=== PATIENT | male | born 1965 ===

== ENCOUNTER → 2024-05-24 | Outpatient (CLI) | payer OTHER ==
[2024-05-26 10:13] LABS: Stool Occult Bld Immuno 1 Positive (NEGATIVE)
[2024-05-26 10:14] LABS: Stool Occult Bld Immuno 2 Positive (NEGATIVE)
== END ==
LOC: LAB SHORT 17:16 → LAB 17:16
PROVIDERS: Physician Assistant
DX: Z12.11 Encounter for screening for malignant neoplasm of colon (principal)
CPT/HCPCS: G0328